=== PATIENT | male | born 1975 | race Caucasian/White ===

== ENCOUNTER 2018-10-10 15:11 | Emergency (ER) | payer BC, OTHER ==
[2018-10-10] MEDS: KETOROLAC 60 MG INJ IM (16:23)
[2018-10-10] MEDS: DEXAMETHASONE 10 MG/ML 1 ML INJ IM (16:23)
== END 2018-10-10 16:44 | disposition home or self-care (01) ==
LOC: FTE 15:11
DX: J02.9 Acute pharyngitis, unspecified (principal)
CPT/HCPCS: 96372; 99284-25